=== PATIENT | female | born 1985 | race African-American/Black ===

== ENCOUNTER 2018-07-21 05:33 | Inpatient (IN) | payer SELFPAY ==
[2018-07-21] MEDS ORDERED: BRETHINE SUB-Q PRN (06:16)
[2018-07-21] MEDS ORDERED: MINERAL OIL PO PRN (06:16)
[2018-07-21] MEDS ORDERED: LACTATED RINGERS 2,000 ML ONE ×2 (06:16→06:18)
[2018-07-21] MEDS ORDERED: AMPICILLIN/NS 2 GM/100 ML 2 GM/100 ML BAG IV ONE (06:16)
[2018-07-21] MEDS ORDERED: BRETHINE IVP PRN (06:16)
[2018-07-21 06:40] LABS: Hematocrit 38.1 % (30.3-42.9); Mean Corpuscular HGB Conc 34 % (30-34); Mean Corpuscular Volume 89 fl (79-97); Platelet Count 214 K/mm3 (140-440); Red Blood Count 4.26 M/mm3 (3.65-5.03); Red Cell Distribution Width 14.4 % (13.2-15.2)
[2018-07-21] MEDS ORDERED: PITOCin/NS 30 UNIT/500ML 30 UNITS/500 ML BAG IV SCH (07:00)
[2018-07-21] MEDS ORDERED: LACTATED RINGERS 1,000 ML IV SCH (07:00)
[2018-07-21] MEDS: PITOCin/NS 20 UNIT/1000ML DRIP 20 UNITS/1,000 ML BAG IV SCH ×2 (07:05→08:47)
[2018-07-21] MEDS ORDERED: TUCKS PAD TP PRN (07:16)
[2018-07-21] MEDS ORDERED: LANSINOH TP PRN (07:16)
[2018-07-21] MEDS ORDERED: DULCOLAX PR PRN (07:16)
[2018-07-21] MEDS ORDERED: MILK OF MAGNESIA PO PRN (07:16)
--- NOTE | 2018-07-21 07:27 | History and Physical Report ---
History of Present Illness Date of examination: 07/21/18 Date of admission: 07/21/18 06:06 Chief complaint: Labor History of present illness: 33 year old presents in active advanced labor. Patient received care at [facility] and records are available. LMP 10/17/17. EDC 07/24/18. significant for the following: AMA, gestational diabetes (noncompliant with Glyburide), GBS positive, previous history of (noncompliant with [place]). labs are as follows: A+, antibody screen negative, pap smear normal, rubella immune, hepatitis B surface antigen negative, HIV negative, chlamydia negative, gonorrhea negative, quad screen negative, abnormal 1 hour sugar test and abnormal 3 hour sugar test, VDRL nonreactive, GBS positive. Past History Past Medical History: other (obesity, gestational diabetes, kidney stones) Past Surgical History: other (cataract) [facility] History: abnormal PAP smear. denies: chlamydia, gonorrhea, hepatitis B, herpes, HIV, syphilis, trichomonas Family/Genetic History: other (thyroid disease, kidney disease) Social history: , lives with family, full code. denies: smoking, alcohol abuse, prescription drug abuse, IV drug use - Obstetrical History Expected Date of Delivery: 07/24/18 Actual Gestation: 39 Week(s) 4 Day(s) : 7 Para: 5 Hx # Term Pregnancies: 4 Number of Pregnancies: 1 Spontaneous Abortions: 1 Induced : 0 Number of Living Children: 5 Medications and Allergies Allergies Allergy/AdvReac Type Severity Reaction Status Date / Time No Known Allergies Allergy Verified 07/21/18 06:20 Active Meds: Active Medications Acetaminophen (Tylenol) 650 mg PO Q4H PRN PRN Reason: Pain MILD(1-3)/Fever >100.5/[place] Bisacodyl (Dulcolax) 10 mg [place] BID PRN PRN Reason: Constipation Docusate Sodium (Colace) 100 mg PO BID TANNER Ephedrine Sulfate (Ephedrine Sulfate) 10 mg IV Q2M PRN PRN Reason: Hypotension Lactated Ringer's (Lactated Ringers) 1,000 mls @ 125 mls/hr IV DIRECT TANNER Oxytocin/Sodium Chloride (Pitocin/Ns 20 Unit/1000ml Drip) 20 units in 1,000 mls @ 125 mls/hr IV DIRECT TANNER Last Admin: 07/21/18 07:05 Dose: 999 mls/hr Documented by: Oxytocin/Sodium Chloride (Pitocin/Ns 30 Unit/500ml) 30 units in 500 mls @ 1 mls/hr IV TITR TANNER; Protocol Ibuprofen (Motrin) 600 mg PO Q6H TANNER Magnesium Hydroxide (Milk Of Magnesia) 30 ml PO HS PRN PRN Reason: Constipation Mineral Oil (Mineral Oil) 30 ml PO QHS PRN PRN Reason: Constipation Multi-Ingredient Ointment (Lansinoh) 1 applic TP PRN PRN PRN Reason: Sore Nipples Sodium Chloride (Sodium Chloride Flush Syringe 10 Ml) 10 ml IV PRN NR Terbutaline Sulfate (Brethine) 0.25 mg SUB-Q ONCE PRN PRN Reason: Hyperstimulation/Hypertonicity Terbutaline Sulfate (Brethine) 0.25 mg IVP ONCE PRN PRN Reason: Hyperstimulation/Hypertonicity [place]/Glycerin (Tucks Pad) 1 each TP PRN PRN PRN Reason: Hemorrhoid/cleansing/soothing Review of Systems All systems: negative (contractions) - Vital Signs Vital signs: Vital Signs Temp Resp 98.1 F 18 07/21/18 06:32 07/21/18 06:32 Temp Pulse Resp BP Pulse Ox 98.1 F 87 18 108/78 07/21/18 06:32 07/21/18 07:14 07/21/18 06:32 07/21/18 07:14 - Physical Exam Abdomen: Positive: normal appearance, soft. Negative: distention, tenderness, guarding, rigidity Genitourinary (Female): Positive: normal external genitalia, normal perenium, perineal/vulvar lesions Vagina: Positive: normal moisture Uterus: Positive: enlarged Anus/Rectum: Positive: normal perianal skin Extremities: Positive: normal. Negative: tenderness, edema - Obstetrical FHR: category 1 Uterine Contraction Monitor Mode: External Cervical Dilatation: 9 Cervical Effacement Percentage: 90 station: -2 Uterine Contraction Pattern: Regular Uterine Contraction Intensity: Moderate Results Result Diagrams: 07/21/18 Unknown All other labs normal. Assessment and Plan A: at 39 weeks, 4 days gestation. Active advanced labor. GBS positive. Gestational diabetes, noncompliant with Glyburide. P: Admit. GBS prophylaxis. Anticipate vaginal .
--- NOTE | 2018-07-21 07:39 | Procedure Note ---
OB Delivery Note - Delivery Date of Delivery: 07/21/18 Surgeon: ELIU FERNÁNDEZ Estimated blood loss: other (250 cc) - Vaginal Delivery presentation: vertex Delivery position: OA Delivery induction: none Delivery monitor: external FHT, external uterine Route of delivery: Delivery placenta: spontaneous Delivery cord: 3 umbilical vessels Episiotomy: none Delivery laceration: none Anesthesia: none Delivery comments: Spontaneous vaginal delivery at 07:00 of liveborn female over intact perineum with apgars of 9/9. Baby placed immediately skin to skin on mom's chest after . Spontaneous cry and respirations. 3 vessel cord double clamped and cut after cessation of pulsation. Spontaneous delivery of intact placenta and membranes at 07:04. EBL 250 cc. Pitocin to IV fluids after delivery of placenta. Fundus firm and midline. Vaginal sweep negative. No lacerations noted. Sponge count correct. Mother and baby stable in birthing room. Baby has not been weighed yet.
[2018-07-21] MEDS ORDERED: SODIUM CHLORIDE FLUSH SYRINGE 10 ML IV NR (08:00)
--- NOTE | 2018-07-21 08:22 | Ultrasound Report ---
PROCEDURE: US OB FOLLOW UP TECHNIQUE: Limited obstetrical ultrasound HISTORY: EFW COMPARISONS: No priors FINDINGS: Only and image of the abdominal circumference was obtained corresponding to a gestational age of 35 w eeks and 5 days. The examination was terminated due to active labor. IMPRESSION: As above. This document is electronically signed by Ole Horan MD., July 21 2018 08:19:27 AM ET
[2018-07-21] MEDS: IBUPROFEN PO SCH ×3 (10:21→22:56)
[2018-07-21] MEDS: TYLENOL PO PRN (15:24)
[2018-07-21] MEDS: COLACE PO SCH ×2 (18:43→22:56)
[2018-07-21 19:07] LABS: Hematocrit 28.3 % (30.3-42.9); Hemoglobin 9.9 gm/dl (10.1-14.3)
[2018-07-22] MEDS: IBUPROFEN PO SCH ×4 (02:00→14:20)
[2018-07-22] MEDS: COLACE PO SCH (09:32)
--- NOTE | 2018-07-22 12:33 | Progress Note ---
Assessment and Plan A: day 1 S/P spontaneous vaginal delivery. Anemia secondary to and blood loss. P: Supplement with oral iron. Anticipate discharge tomorrow. Subjective - Subjective Date of service: 07/22/18 Principal diagnosis: day 1 S/P Interval history: day 1 S/P spontaneous vaginal delivery. Patient is doing well. She reports a small amount of lochia. Patient is voiding without difficulty, ambulating well, tolerating a regular diet without nausea or vomiting. Patient denies headache, dizziness, chest pain, cough, shortness of breath, leg pain, abdominal pain, or heavy vaginal bleeding. Patient reports: appetite normal, voiding normally, pain well controlled, flatus, ambulating normally, no dizzy ambulation, no nauseated [place]: doing well Objective - Vital Signs Latest vital signs: Vital Signs Temp Pulse Resp BP Pulse Ox 07/22/18 08:00 98.1 F 88 20 107/61 95 07/22/18 00:19 98.6 F 93 H 18 102/56 94 07/21/18 21:45 98.0 F 93 H 16 121/56 94 07/21/18 16:23 98.2 F 89 20 103/56 97 Intake and Output 07/21/18 07/22/18 07/22/18 23:59 07:59 15:59 Intake Total 300 Balance 300 Intake: Intake, Free Water 300 - Exam Cardiovascular: Present: Regular rate, Normal S1, Normal S2 Lungs: Present: Clear to auscultation Abdomen: Present: normal appearance, soft, normal bowel sounds. Absent: distention, tenderness, guarding, rigidity Uterus: Present: normal, firm, fundal height below umbilicus. Absent: bogginess, tenderness Extremities: Present: normal. Absent: tenderness, edema - Labs Labs: Abnormal lab results 07/21/18 Range/Units 18:40 Hgb 9.9 L D (10.1-14.3) gm/dl Hct 28.3 L D (30.3-42.9) %
[2018-07-22] MEDS: FEOSOL PO SCH (16:41)
[2018-07-23] MEDS: FEOSOL PO SCH ×2 (00:24→11:32)
[2018-07-23] MEDS: IBUPROFEN PO SCH ×2 (00:24→06:29)
--- NOTE | 2018-07-23 07:49 | Progress Note ---
Assessment and Plan A: day 2 S/P . Anemia secondary to and blood loss. P: Discharge patient home today. discharge instructions and warning signs discussed with patient in detail. Advised pt. to continue her vitamins and iron supplements at home. Advised pt. to avoid lifting and heavy housework and sexual intercourse. Advised pt. to follow up at [facility] in 6 weeks. Pt. voiced understanding of instructions. Subjective - Subjective Date of service: 07/23/18 Principal diagnosis: day 2 S/P Interval history: day 2 S/P spontaneous vaginal delivery. Patient is doing well. She reports a small amount of lochia. Patient is voiding without difficulty, ambulating well, tolerating a regular diet without nausea or vomiting. Patient denies headache, dizziness, chest pain, cough, shortness of breath, leg pain, abdominal pain, or heavy vaginal bleeding. Patient reports: appetite normal, voiding normally, pain well controlled, flatus, ambulating normally, no dizzy ambulation, no nauseated [place]: doing well Objective - Vital Signs Latest vital signs: Vital Signs Temp Pulse Resp BP BP Pulse Ox 07/22/18 23:55 98.6 F 95 H 18 121/56 07/22/18 16:04 97.7 F 86 20 116/52 97 07/22/18 08:00 98.1 F 88 20 107/61 95 Intake and Output 07/22/18 07/22/18 07/23/18 15:59 23:59 07:59 Intake Total 300 Balance 300 Intake: Intake, Free Water 300 - Exam Cardiovascular: Present: Regular rate, Normal S1, Normal S2 Lungs: Present: Clear to auscultation Abdomen: Present: normal appearance, soft. Absent: distention, tenderness, guarding, rigidity Uterus: Present: normal, firm, fundal height below umbilicus. Absent: bogginess, tenderness Extremities: Present: normal. Absent: tenderness, edema
--- NOTE | 2018-07-23 07:51 | Discharge Summary ---
Providers - Providers Date of Admission: 07/21/18 06:06 Date of discharge: 07/23/18 Attending physician: JOHANA CABA MD None Primary care physician: JOHANA CABA MD Hospitalization Reason for admission: active labor Delivery: Episiotomy: none Laceration: none Other procedures: none complications: none Discharge diagnosis: IUP at term delivered baby: female Pertinent studies: Labs Hospital course: Normal hospital course Condition at discharge: Good Disposition: DC-01 TO HOME OR SELFCARE - Discharge Diagnoses (1) Term delivered Status: Acute (2) Anemia due to blood loss Status: Acute Plan - Provider Discharge Summary Activity: routine, no sex for 6 weeks, no heavy lifting 4 weeks, no strenuous exercise Diet: routine Instructions: routine Additional instructions: Take your vitamins and iron supplements at home. Call your doctor immediately for: * Fever > 100.5 * Heavy vaginal bleeding ( >1 pad per hour) * Severe persistent headache * Shortness of breath * Reddened, hot, painful area to leg or breast - Follow up plan Follow up: JOHANA CABA MD [Primary Care Provider] - 6 Weeks
[2018-07-23] MEDS: TYLENOL PO PRN (11:32)
[2018-07-23] MEDS: COLACE PO SCH (11:38)
[2018-07-23 16:11] VITALS: BP 121/71
== END 2018-07-23 15:30 | disposition home or self-care (01) | DRG 807 ==
LOC: TRG 05:33 → MERGE 06:06 → LD 06:06 → OB 09:11
PROVIDERS: ADMIT Obstetrics & Gynecology; ATTEND Obstetrics & Gynecology
PROC: 10E0XZZ Delivery of Products of Conception, External Approach (ICD-10-PCS; principal; 2018-07-21)
DX: O99.824 Streptococcus B carrier state complicating childbirth (principal); Z37.0 Single live birth; O99.02 Anemia complicating childbirth; D50.0 Iron deficiency anemia secondary to blood loss (chronic); O24.429 Gestational diabetes mellitus in childbirth, unspecified control; O99.214 Obesity complicating childbirth; E66.9 Obesity, unspecified; Z87.442 Personal history of urinary calculi; Z3A.39 39 weeks gestation of pregnancy; Z91.14 Patient's other noncompliance with medication regimen
CPT/HCPCS: 36415; 76816; 82962; 85014; 85018; 85027; 86592; 86850; 86900; 86901; G0378; J0290; J2590; J7120